=== PATIENT | female | born 2000 | race Caucasian/White ===

== ENCOUNTER 2020-03-30 11:12 | Emergency (ER) | payer BC, SELFPAY ==
[2020-03-30 11:30] VITALS: BP 142/74; PULSE 93; RESP 14; TEMP 36.7; O2SAT 99
--- NOTE | 2020-03-30 11:53 | ED.GENADULT ---
HPI - General Adult General Chief complaint: Wound/Laceration Stated complaint: left foot big toe infection Time Seen by Provider: 03/30/20 11:53 Source: patient and RN notes reviewed Mode of arrival: ambulatory Limitations: no limitations History of Present Illness HPI narrative: 19-year-old female presents with complaints of LT great toenail with pain and intermittent white drainage for the past 3 days. Fidelia says someone stepped on her foot while she had on sandals breaking her great toenail in half, top half of toenail broke off 3 days afterwards with the above symptoms. Symptoms increased over the past 24 hours with increase drainage. Cleaning toenail and wrapping it with antibiotic ointment without relief. Denies numbness or tingling. No weakness of toe. Denies fever or chills. Denies immobility. Exacerbation is movement and palpation of toe. No relieving factors. LMP 2 weeks and on control. Remains active. The patient reports he have not been diagnosed with COVID-19. The patient reports he is not waiting for the results of a COVID-19 lab test. The patient reports he do not have fever, chills, weakness, or fatigue. The patient reports he do not have a new or worsening cough or shortness of breath. Denies chest pain. The patient reports he do not have any rhinorrhea, congestion, sore throat, loss of taste, nausea, vomiting, abdominal pain, and diarrhea. Tolerating po intake well. Denies recent traveling. Denies concerns for COVID-19 or exposures been home with limited outdoor exposure except for essential household needs, student, and return home. At this time, patient is not suspected of having COVID-19. Some parts of this dictation were generated by voice recognition software and may contain typographical and/or grammatical inaccuracies. Related Data Home Medications Medication Instructions Recorded Confirmed norgestimate-ethinyl estradiol 1 tablet PO DAILY 03/30/20 03/30/20 [Estarylla] Allergies Allergy/AdvReac Type Severity Reaction Status Date / Time No Known Allergies Allergy Verified 03/30/20 11:36 Review of Systems Review of Systems: Narrative: CONSTITUTIONAL: Denies fever, chills, sweats. EYES: Denies visual changes, redness, discharge. ENT: Denies rhinorrhea, congestion, sore throat, otalgia. CARDIOVASCULAR: Denies chest pain, palpitations, edema. RESPIRATORY: Denies dyspnea, wheezing, cough GASTROINTESTINAL: Denies abdominal pain, nausea, vomiting, diarrhea. GENITOURINARY: Denies dysuria, hematuria, abnormal discharge SKIN: Denies rash or itching. Complains of LT great toe with drainage and tenderness. MUSCULOSKELETAL: Denies acute back pain or myalgia. Complains of RT great tenderness. NEUROLOGIC: Denies numbness, or focal weakness. PSYCHIATRIC: Denies anxiety or depression. All other systems reviewed are negative, except as documented in HPI and below. [facility] Past Medical History Medical History (Updated 03/30/20 @ 16:29 by GIOVANA Marcos) Asthma Surgical History Surgical History (Updated 03/30/20 @ 16:29 by GIOVANA Marcos) History of adenoidectomy History of tonsillectomy Family History Family History (Updated 03/30/20 @ 16:30 by GIOVANA Marcos) Father Alive and well Mother Alive and well Social History Social History (Updated 03/30/20 @ 16:31 by GIOVANA Marcos) Smoking status: Never smoker Tobacco type: cigarettes Second hand tobacco smoke exposure: No Alcohol intake: current Substance use: never Living arrangements: with family Occupation/Education: student Gender identity (if verbalized by the patient): Female Sexual Orientation (if Verbalized by the Patient): Straight or Heterosexual Comments At time of signature, agree with nurse past medical, surgical, social, and family history. There is no relevant family history pertinent to the presenting complaint. Exam Narrative: Exam Narrati
== END 2020-03-30 12:22 | disposition home or self-care (01) ==
PROVIDERS: Emergency Provider Nurse Practitioner Family; PCP Pediatrics
DX: L08.9 Local infection of the skin and subcutaneous tissue, unspecified (principal); J45.909 Unspecified asthma, uncomplicated
CPT/HCPCS: 99213; G0463

== ENCOUNTER 2020-12-01 15:09 | Emergency (ER) | payer BC, SELFPAY ==
--- NOTE | ~2020-12-01 | XR_ITS ---
XR foot LT min 3V 12/01/2020 15:27 INDICATION: Left foot pain PROCEDURE: 4 views left foot COMPARISON: No prior studies for comparison. FINDINGS: Fracture, dislocation or subluxation is not identified. Mild soft tissue swelling overlying the distal phalanx. There is a punctate radiodensity overlying the first distal phalanx, likely a sm all foreign body. IMPRESSION: 1: No acute fracture. 2: Mild soft tissue swelling overlying the distal phalanx with punctate foreign body along the planta r soft tissues. Reviewed, dictated and finalized at location A. IMPRESSION: 1: No acute fracture. 2: Mild soft tissue swelling overlying the distal phalanx with punctate foreign body along the plantar soft tissues.
[2020-12-01 15:14] VITALS: BP 114/84; PULSE 86; RESP 16; TEMP 36.7; O2SAT 100
--- NOTE | 2020-12-01 15:46 | ED.LOWEXIN ---
HPI - Extremity Injury (Lower) General Chief Complaint: Extremity Injury, Lower Stated Complaint: left foot injury Time Seen by Provider: 12/01/20 15:47 Source: patient Mode of arrival: ambulatory Limitations: no limitations History of Present Illness HPI Narrative: Fidelia Christiansen is a 20 yo female with PMH of asthma who comes to [facility] after dropping a folding table on her left foot, pain is on dorsum of left foot, rates her pain as4/10, sharp and shooting pain. Related Data Home Medications Medication Instructions Recorded Confirmed norgestimate-ethinyl estradiol 1 tablet PO DAILY 03/30/20 12/01/20 [Estarylla] Allergies Allergy/AdvReac Type Severity Reaction Status Date / Time No Known Allergies Allergy Verified 03/30/20 11:36 Review of Systems Review of Systems: Narrative: CONSTITUTIONAL: Denies fever, chills, sweats. EYES: Denies visual changes, redness, discharge. ENT: Denies rhinorrhea, congestion, sore throat, otalgia. CARDIOVASCULAR: Denies chest pain, palpitations, edema. RESPIRATORY: Denies dyspnea, wheezing, cough GASTROINTESTINAL: Denies abdominal pain, nausea, vomiting, diarrhea. GENITOURINARY: Denies dysuria, hematuria, abnormal discharge SKIN: Denies rash or itching. NEUROLOGIC: Denies numbness, or focal weakness. PSYCHIATRIC: Denies anxiety or depression. Left foot pain after dropping table 1 foot PMFSH Past Medical History Medical History Asthma Surgical History Surgical History History of adenoidectomy History of tonsillectomy Family History Family History Father Alive and well Mother Alive and well Social History Social History (Updated 12/01/20 @ 15:51 by Dominga Ellis CNP) Smoking status: Never smoker Second hand tobacco smoke exposure: No Alcohol intake: current Substance use: never Gender identity (if verbalized by the patient): Female Comments At time of signature, I agree with nursing past medical, surgical, social and family history. There is no relevant family history pertinent to the presenting complaint. Exam Narrative: Exam Narrative: GENERAL: This is a well-nourished, well-developed patient, in mild distress. HEAD: normocephalic, atraumatic. EYES:Sclera clear/white. Vision is grossly intact. EARS: External ears normal, Hearing grossly intact. NOSE: External nose normal without nasal discharge, nares without redness, no rhinorrhea. THROAT: Mucous membranes moist, CARDIOVASCULAR: Regular rate and rhythm without murmurs, gallops, or rubs. RESPIRATORY: Clear to auscultation. Breath sounds equal bilaterally. No wheezes, rales, or rhonchi. GASTROINTESTINAL: Abdomen soft, non-tender, SKIN: warm, intact with no suspicious lesions or rash, good texture and turgor. NEURO: awake, alert, and oriented to person, place and time. There were no obvious focal neurologic abnormalities. Steady gait EXTREMITIES: Normal range of motion. L dorsum foot pain across metatarsal 3/4, n ecchymosis, no edema BACK: Nontender without deformity Course Course Emergency Course: Patient has pain on left foot after dropping table on it; no ecchymosis no laceration no edema X-ray is negative for fracture shows no acute fracture mild soft tissue swelling in the distal phalanx with tiny foreign body along plantar tissue Placed in Joseph wrap and discharged patient states does not need pain medication Vital Signs Vital signs: Vital Signs Temperature 98.0 F 12/01/20 15:14 Pulse Rate 86 12/01/20 15:14 Respiratory Rate 16 12/01/20 15:14 Blood Pressure 114/84 12/01/20 15:14 Pulse Oximetry 100 12/01/20 15:14 Temperature 98.0 F 12/01/20 15:14 Pulse Rate 86 12/01/20 15:14 Respiratory Rate 16 12/01/20 15:14 Blood Pressure 114/84 12/01/20 15:14 Pulse Oximetry 100 12/01/20 15:14
== END 2020-12-01 16:13 | disposition home or self-care (01) ==
PROVIDERS: Emergency Provider Nurse Practitioner; PCP Pediatrics
DX: S93.602A Unspecified sprain of left foot, initial encounter (principal); W20.8XXA Other cause of strike by thrown, projected or falling object, initial encounter; J45.909 Unspecified asthma, uncomplicated
CPT/HCPCS: 73630; 99213; G0463

== ENCOUNTER 2021-01-08 14:41 | Emergency (ER) | payer BC, SELFPAY ==
[2021-01-08 14:45] VITALS: BP 120/70; PULSE 93; RESP 14; TEMP 36.8; O2SAT 100
--- NOTE | 2021-01-08 15:08 | ED.EAR ---
HPI - Ear Problem General Chief complaint: Ear Stated complaint: can't hear out of right ear Time Seen by Provider: 01/08/21 15:00 Source: patient and RN notes reviewed Mode of arrival: ambulatory Limitations: no limitations History of Present Illness HPI Narrative: 20-year-old female presents concern for decreased hearing in the right ear. Reports she woke up with symptoms this morning. She denies any pain, drainage from the ear, runny nose, stuffy nose, sore throat, fever. She denies intervention. MD Complaint: decreased hearing Related Data Home Medications Medication Instructions Recorded Confirmed No Home Medications 01/08/21 01/08/21 Allergies Allergy/AdvReac Type Severity Reaction Status Date / Time No Known Allergies Allergy Verified 01/08/21 14:52 Review of Systems Review of Systems: Narrative: CONSTITUTIONAL: Denies malaise, chills, sweats, or fever. EYES: Denies visual changes, redness, or discharge. ENT: Denies rhinorrhea, congestion, sinus pain, otalgia and sore throat. Reports decreased hearing in the right ear CARDIOVASCULAR: Denies chest pain, palpitations, or edema. RESPIRATORY: Denies cough or dyspnea. GASTROINTESTINAL: Denies abdominal pain, nausea, vomiting, diarrhea SKIN: Denies rash or itching. MUSCULOSKELETAL: Denies myalgia. NEUROLOGIC: Denies headache. All systems reviewed & are unremarkable except as noted in HPI and below PMFSH Past Medical History Medical History Asthma Surgical History Surgical History History of adenoidectomy History of tonsillectomy Family History Family History Father Alive and well Mother Alive and well Social History Social History (Updated 12/01/20 @ 15:51 by Dominga Ellis CNP) Smoking status: Never smoker Second hand tobacco smoke exposure: No Alcohol intake: current Substance use: never Gender identity (if verbalized by the patient): Female Comments At time of signature, agree with nursing past medical, surgical, social and family history. There is no relevant family history pertinent to the presenting complaint Exam Narrative: Exam Narrative: GENERAL: Well-appearing, well-nourished, and in no acute distress. HEAD: Normocephalic EYES: PERRLA, conjunctivae clear ENT: Nares clear, turbinates clear. Mucous membranes moist. Left TM pearly gillette with sharp light reflex right TM not visible due to cerumen impaction; no tragal tenderness. NECK: Supple. No lymphadenopathy CHEST: No respiratory distress, speaks in full sentences. HEART: Regular rate and rhythm. No murmur heard. SKIN: Warm, dry, no rash. NEURO: Alert and oriented x3. PSYCH: Normal mood and affect Course Course Emergency Course: Patient is aware of diagnosis, understands and agrees to treatment plan. Anticipatory guidance given. Patient agrees to follow-up as directed and is aware of reasons to seek care at the emergency department. Portions of this record may have been created with voice recognition software Vital Signs Vital signs: Vital Signs Temperature 98.3 F 01/08/21 14:45 Pulse Rate 93 01/08/21 14:45 Respiratory Rate 14 01/08/21 14:45 Blood Pressure 120/70 01/08/21 14:45 Pulse Oximetry 100 01/08/21 14:45 Temperature 98.3 F 01/08/21 14:45 Pulse Rate 93 01/08/21 14:45 Respiratory Rate 14 01/08/21 14:45 Blood Pressure 120/70 01/08/21 14:45 Pulse Oximetry 100 01/08/21 14:45 Reviewed. Procedures Ear Wax Removal Right Ear: Ear Wax Removal Date: 01/08/21 Ear Wax Removal Time: 15:08 Cerumenolytic Used: 5-10% Sodium Bicarb solution Results: Re-examined: cerumen removed completely TM Examination: other (TM not visible due to auditory canal erythema and edema) Ear Canal Exam: atraumatic Patient Tolerated Procedure:
== END 2021-01-08 15:36 | disposition home or self-care (01) ==
PROVIDERS: Emergency Provider Nurse Practitioner; PCP Pediatrics
DX: H61.21 Impacted cerumen, right ear (principal); H60.501 Unspecified acute noninfective otitis externa, right ear; J45.909 Unspecified asthma, uncomplicated
CPT/HCPCS: 69209; 99213; G0463

== ENCOUNTER 2023-08-08 17:39 | Emergency (ER) | payer BC, SELFPAY ==
[2023-08-08 17:46] VITALS: BP 110/76; PULSE 73; RESP 14; TEMP 36.7; O2SAT 100
[2023-08-08 17:52] VITALS: BP 110/76; PULSE 73; RESP 14; TEMP 36.7; O2SAT 100
--- NOTE | 2023-08-08 18:05 | ED.URI ---
HPI - URI/Sore Throat General Chief Complaint: Upper Respiratory Infection Stated Complaint: flu symptoms Source: patient, RN notes reviewed and old records reviewed Mode of arrival: ambulatory Limitations: no limitations History of Present Illness HPI Narrative: 22-year-old female presents to [facility] with complaints of sinus congestion, myalgia, fever, chills, fatigue, sore throat that started Tuesday night. Patient states sore throat has resolved but continues to have body aches fatigue and chills. Patient denies cough, chest pain, shortness of breath, weakness, dizziness Related Data Home Medications Medication Instructions Recorded Confirmed No Home Medications 01/08/21 08/08/23 Allergies Allergy/AdvReac Type Severity Reaction Status Date / Time No Known Allergies Allergy Verified 08/08/23 17:52 Review of Systems Constitutional: Constitutional: Reports no additional constitutional complaints, Reports body ache(s), Reports chills, Reports fatigue, Reports fever(s) and Denies headache(s) Eyes: Eyes: Reports no additional eye complaints and Denies blurry vision ENT: Reports system reviewed and no additional complaints, except as documented, Denies vertigo, Denies dizziness, Denies ear discharge, Denies otalgia, Denies facial pain, Denies headache(s), Reports nasal congestion, Denies nasal discharge, Denies sinus pain, Denies sinus pressure and Reports sore throat Cardiovascular: Cardiovascular: Reports no additional cardiovascular complaints, Denies chest pain, Denies chest pain at rest, Denies rapid heart rate and Denies dyspnea Respiratory: Respiratory: Reports no additional respiratory complaints, Denies chest congestion, Denies cough, Denies pain on inspiration, Denies pain with cough and Denies dyspnea Gastrointestinal: Gastrointestinal: Denies abdominal pain, Denies diarrhea, Denies nausea and Denies vomiting Integumentary/Breasts: Skin/Breast: Denies rash Neurologic: Reports system reviewed and no additional complaints, except as documented, Denies vertigo, Denies dizziness and Denies headache(s) Endocrine: Endocrine: Denies fatigue PMFSH Past Medical History Medical History Asthma Surgical History Surgical History History of adenoidectomy History of tonsillectomy Family History Family History Father Alive and well Mother Alive and well Social History Social History Smoking status: Never smoker Second hand tobacco smoke exposure: No Alcohol intake: current Substance use: never Living arrangements: with family Occupation/Education: student Gender identity (if verbalized by the patient): Female Sexual Orientation (if Verbalized by the Patient): Straight or Heterosexual Comments At the time of my signature, I reviewed and agree with the nursing past medical, surgical, social, and family history. There is no relevant family history pertinent to the patient complaint. Exam Const: General: cooperative, healthy appearing, no acute distress and well nourished Nutritional Appearance: well nourished Orientation/consciousness: patient oriented x3 Limitations: no limitations HENMT: Head: normal to inspection and normocephalic Ears: external ears normal, TM's normal bilaterally, mastoids normal and Abnormal EAC present Face/Nose/Sinus: normal facial exam Face and sinus: normal facial exam Mouth: Yes Normal oral and palatal mucosa present, Yes oropharynx normal and Yes moist mucous membranes Throat: posterior oropharynx normal, tonsils normal, uvula midline and no uvular edema Eyes: General: appearance normal, both eyes and all related structures Sclera: sclerae normal Pupils: Equal, round and reactive pupils present Resp: Effort & Inspection: normal
== END 2023-08-08 18:15 | disposition home or self-care (01) ==
PROVIDERS: Emergency Provider Registered Nurse; PCP Family Medicine
DX: B34.9 Viral infection, unspecified (principal); Z20.822 Contact with and (suspected) exposure to COVID-19; J45.909 Unspecified asthma, uncomplicated
CPT/HCPCS: 87426; 87804; 99213; G0463

== ENCOUNTER 2024-01-18 01:01 | Day surgery (SDC) | payer BC, SELFPAY ==
[2024-01-13 13:23] VITALS: BMI 24.0
--- NOTE | 2024-01-13 13:29 | PC.NURSE ---
Report to the Outpatient Waiting Room, entrance under the green pavilion located off [facility], at time _0830_ on date _[id number]_. Planned Procedure Time: _1030_. Time changes happen often and if your time is changed the preop area will call you the afternoon before. - You and your visitor will be asked to self-screen and do not enter if you have any COVID symptoms. - A mask is optional within the hospital at this time. Patients may have clear liquids (water, carbonated beverages, clear teas, apple juice) until 3 hours prior to surgery with a maximum of 20 ounces. - No food from midnight until time of surgery Take the following medications with a SIP of water the morning of surgery: _None DO NOT STOP ANY OF YOUR OTHER PRESCRIPTION MEDICATIONS PRIOR TO SURGERY ?EXCEPT THE FOLLOWING Medications to discontinue per physician All vitamins and supplements Date to take last pbtf___[id number] Please no make-up, nail syriac, hairspray, perfume, deodorant, or body powder the day of surgery. No jewelry (including any body piercings) or valuables the day of surgery, leave them at home. Please take a shower or bath the night before, or the morning of, surgery with an antibacterial soap. Wear comfortable, loose fitting clothing. - Jewelry must be removed prior to entering the operating room. Rings and piercings that are not removed may be cut off. - The hospital will not accept responsibility for valuables. - Please leave all valuables, including medications, at home the day of surgery. If you are going home after surgery, a licensed patrol driver must drive you home. - NO public transportation without another adult if you receive anesthesia. - We recommend that an adult stay with you for 24 hours following discharge. - We also recommend that you do not drive, make important decision, drink alcoholic beverages, or take any drugs that were not prescribed by your health care provider for at least 24 hours after your discharge time. Follow any additional instructions given to you from your surgeon. If you or anyone in your household have experienced Covid symptoms in the past week, please notify your surgeon or the nurse liaison at the phone number below for possible testing. Telephone instructions given to __Breann___and asked if any additional questions and then verbalized understanding. Patient advised to call surgeon office or pre surgery nurse liaison [phone] if any additional questions.
[2024-01-18] VITALS (7 sets, daily range): BP systolic 80–105; BP diastolic 31–60; PULSE 45–82; RESP 14–16; TEMP 37.1; O2SAT 99–100; BMI 23.5
[2024-01-18] MEDS: LACTATED RINGERS 1,000 ML 30 ML IV CONT ×2 (09:00→11:17)
[2024-01-18] MEDS: ACETAMINOPHEN 500 MG TABLET 1000 MG PO (09:13)
--- NOTE | 2024-01-18 10:24 | WPDHPUPDATE1 ---
History and Physical Update Update Date/Time: 01/18/24 10:24 History and Physical has been reviewed, including an updated exam of the patient. There are NO changes in the patient's condition. Risks, benefits, and alternatives have been discussed and questions answered. Patient agrees to proceed with procedure.
--- NOTE | 2024-01-18 10:24 | PM.IMHP ---
H&P: HPI History of Present Illness Date/Time: 01/18/24 10:24 Chief Complaint: Bleeding after intercourse Narrative: 23-year-old female with postcoital bleeding And endometrial polyp. We agreed to perform hysteroscopy D&C with polypectomy. She has a endometrial polyp. patient understands the procedure, It has been explained to her in detail. she understands the risk. She understands injuries may occur that result in hospitalization, more surgery, and severe illness. She understands there is risk of hemorrhage infection. She denies any nausea, vomiting, fever, chills. She denies any chest pain shortness of breath Review of Systems Review of Systems: All systems reviewed & are unremarkable except as noted in HPI and below Constitutional: Constitutional: Denies chills, Denies fatigue, Denies fever(s) and Denies weakness Eyes: Eyes: Denies blurry vision, Denies change in vision, Denies loss of peripheral vision, Denies loss of vision, Denies other visual disturbances and Denies eye pain ENT: Denies vertigo, Denies dizziness, Denies hearing loss, Denies mouth pain, Denies nasal obstruction, Denies neck mass and Denies neck pain Cardiovascular: Cardiovascular: Denies chest pain, Denies diaphoresis, Denies syncope, Denies leg edema and Denies dyspnea Respiratory: Respiratory: Denies chest congestion, Denies cough, Denies hemoptysis, Denies dyspnea and Denies wheezing Gastrointestinal: Gastrointestinal: Denies abdominal pain, Denies constipation, Denies diarrhea, Denies nausea and Denies vomiting Genitourinary: Genitourinary: Denies hematuria, Denies change in libido, Denies nocturia, Denies genital lesions, Denies flank pain and Denies urinary urgency Musculoskeletal: Musculoskeletal: Denies abnormal gait, Denies back pain, Denies myalgias, Denies arthralgias, Denies joint swelling, Denies muscle weakness and Denies neck pain Integumentary/Breasts: Skin/Breast: Denies swelling, Denies breast pain, Denies breast mass, Denies dry skin, Denies nipple discharge, Denies unusual bruising and Denies jaundice Neurologic: Denies Neuro-related abnormal movements, Denies Abnormal speech present, Denies abnormal gait, Denies behavioral changes, Denies confusion, Denies vertigo, Denies dizziness, Denies syncope, Denies loss of vision, Denies memory loss, Denies convulsions and Denies weakness Psychiatric: Psychiatric: Denies abnormal sleep pattern, Denies behavioral changes, Denies change in libido, Denies confusion, Denies depression, Denies anhedonia and Denies memory loss Endocrine: Endocrine: Reports no additional endocrine complaints, Denies change in libido and Denies fatigue Hematologic/Lymphatic: Hematologic/Lymphatic: Reports no additional hematologic/lymphatic complaints Allergic/Immunologic: Allergic/Immunologic: Reports no additional allergic/immunologic complaints and Denies wheezing PMFSH Past Medical History Medical History Asthma Surgical History Surgical History History of adenoidectomy History of tonsillectomy Family History Family History Father Alive and well Mother Alive and well Social History Social History Smoking status: Former smoker Tobacco type: e-cigarettes/vaping Second hand tobacco smoke exposure: No Alcohol intake: current Drinks per week: 4 Substance use: never Living arrangements: with family Occupation/Education: student Gender identity (if verbalized by the patient): Female Sexual Orientation (if Verbalized by the Patient): Straight or Heterosexual Spiritual care concerns: No Meds Home Medications and Allergies Home Medications Medication Instructions Recorded Confirmed Type Lactobacillus 40-Bifidobact 1 cap PO DAILY 01/13/24 01/13/24
[2024-01-18] MEDS: fentaNYL CITRATE INJ (*CRX) 100 MCG/2 ML VIAL 25 MCG IV PUSH (11:37)
--- NOTE | 2024-01-18 11:47 | W.PM.PROC2 ---
Procedure Note - Detailed Date of Procedure 01/18/24 Pre-op Diagnosis Endometrial Polyp Post-op Diagnosis Same Procedure Performed Hysteroscopy D&C with polypectomy Surgeon Jorge Bateman MD Anesthesia MAC Indications abnormal uterine bleeding Findings 1.5 cm left cornual polyp, normal endometrium otherwise.. Normal vulva, vagina, cervix. Description of Procedure the patient was taken the operating room. She was prepped and draped in the dorsal lithotomy position after induction of mac anesthesia. A speculum was placed in the vagina. The cervix was grasped with a tenaculum. The cervix was dilated about 1 cm. The hysteroscope was inserted. The intrauterine cavity and endocervix were evaluated. Rotational blade was inserted through the hysteroscope and the endometrial polyp was resected. Hysteroscope was withdrawn. A medium-size curette was used to curettage all the surfaces were within the endometrial cavity. the sample was collected on Telfa and sent to pathology. The hysteroscope was reinserted and the above findings were noted. Patient tolerated the procedure well. The speculum and tenaculum were removed. She was taken recovery room in stable condition. Sponge lap and needle counts were correct x2. Estimated Blood Loss 10 Drains No Packing No Pathology Yes Complications No immediate complications Condition Stable Disposition PACU
[2024-01-18] MEDS: ePHEDrine sulfate INJ 50 MG/ML AMPUL 10 MG IV PUSH (11:59)
--- NOTE | 2024-01-18 12:00 | SUR.PHASEII ---
Dr. Bertrand at bedside to assess patient for low BP. ephedrine given by Dr. Bertrand. BP increased to 94/47. Patient drowsy but responsive. Answers questions appropriately.
[2024-01-18] MEDS: oxyCODONE HCL (*CRX) 5 MG TAB IR PO (12:31)
== END 2024-01-18 13:05 | disposition home or self-care (01) ==
PROVIDERS: PCP Family Medicine; Visit Provider Obstetrics & Gynecology
PROC: 0U5B8ZZ Destruction of Endometrium, Via Natural or Artificial Opening Endoscopic (ICD-10-PCS; CPT 58563; principal; 2024-01-18 10:30)
DX: N84.0 Polyp of corpus uteri (principal); Z87.891 Personal history of nicotine dependence
CPT/HCPCS: 58558; 88305; A9270; J1100; J1596; J2250; J2405; J2704; J3010; J7120